=== PATIENT | female | born 1980 | race Caucasian/White ===

== ENCOUNTER 2020-04-06 13:08 | Emergency (ER) | payer OTHER ==
[~2020-04-06] VITALS: Ht 160 cm; Wt 92.1 kg
--- OUTSIDE RECORDS SUMMARY | ~2020-04-06 | XMS | Encounter Summary ---
Demographics + + + | Address | [address] | | | [place] [address] | + + + | Home Phone | | + + + | Preferred Language | Unknown | + + + | Marital Status | Single | + + + | Latter Day Affiliation | Unknown | + + + | Race | Unknown | + + + | Ethnic Group | Unknown | + + + Author + + + | Author | [facility] | | | and [place] | + + + | Organization | [facility] | | | and [place] | + + + | Address | Unknown | + + + | Phone | Unavailable | + + + Support + + +---------+ + | Name | Relationship | Address | Phone | + + +---------+ + | Nikki Levin | ECON | Unknown | | + + +---------+ + Care Team Providers + +------+ + | Care Director Ambulatory Name | Role | Phone | + +------+ + | Amrit Roblero | PCP | | + +------+ + Reason for Referral Diagnostic/Screening (Routine) + +--------+ + + + + | Status | Reason | Specialty | Diagnoses / | Referred By | Referred To | | | | | Procedures | Contact | Contact | + +--------+ + + + + | Authorized | | | Diagnoses | [facility] | | | | | Bicuspid | [facility] | | | | | aortic valve | [address] | | | | | Procedures | [address] | [address] | | | | | ECHO | [address] | [place] | | | | | Complete | [place], [place] | [address] | | | | | | [address] | Phone: | | | | | | Phone: | [phone] | | | | | | [phone] | Fax: | | | | | | Fax: | [phone] | | | | | | [phone] | | + +--------+ + + + + Reason for Visit + + + | Reason | Comments | + + + | Follow-up | | + + + Evaluate & Treat (Routine) + +--------+ + + + + | Status | Reason | Specialty | Diagnoses / | Referred By | Referred To | | | | | Procedures | Contact | Contact | + +--------+ + + + + | Authorized | | | Diagnoses | [place], | [place], | | | | | 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 | [place] | [place] | | | | | valve | [address] | [place] | | | | | Endocarditis | [place], | [address] Phone: | | | | | valve | [place] [address] | [phone] | | | | | unspecified | Phone: | Fax: | | | | | Chest pain | [phone] | [phone] | | | | | unspecified | Fax: | | | | | | Stress | [phone] | | | | | | Test done- 3 | | | | | | | month Fu | | | | | | | Procedures | | | | | | | MO OFFICE | | | | | | | OUTPATIENT | | | | | | | VISIT 25 | | | | | | | MINUTES CRD | | | | | | | FOLLOW UP | | | + +--------+ + + + + Encounter Details +--------+---------+ + + + | Date | Type | Department | Care Team | Description | +--------+---------+ + + + | 02/05/ | Office | [facility] | Kiran Craft, | Bicuspid aortic | | 2019 | Visit | CARDIOLOGY [facility] | MD Francine HURD | valve (Primary Dx) | | | | [address] | [place], [place] | | | | | [address] | [address] | | | | | [place] | | | | | | [address] | | | | | | [phone] | | | +--------+---------+ + + + Social History + +-------+ +--------+------+ | Tobacco Use | Types | Packs/Day | Years | Date | | | | | Used | | + +-------+ +--------+------+ | Former Smoker | | | | | + +-------+ +--------+------+ + +---+---+---+ | Smokeless Tobacco: | | | | | Never Used | | | | + +---+---+---+ + + +---------+ + | Alcohol Use | Drinks/Week | oz/Week | Comments | + + +---------+ + | Not Currently | | | | + + +---------+ + + + + | Sex Assigned at | Date Recorded | | | | + + + | Not on file | | + + + + + + + | Job Start Date | Occupation | Industry | + + + + | Not on file | Not on file | Not on file | + + + + + + + + | Travel History | Travel Start | Travel End | + + + + + + | No recent travel history available. | + + documented as of this encounter Last Filed Vital Signs + + + + + | Vital Sign | Reading | Time Taken | Comments | + + + + + | Blood Pressure | 98/76 | 02/06/2020 2:03 PM | | | | | PDT | | + + + + + | Pulse | 82 | 02/06/2020 2:03 PM | | | | | PDT | | + + + + + | Temperature | - | - | | + + + + + | Respiratory Rate | - | - | | + + + + + | Oxygen Saturation | 97% | 02/06/2020 2:03 PM | | | | | PDT | | + + + + + | Inhaled Oxygen | - | - | | | Concentration | | | | + + + + + | Weight | 94.3 kg (208 lb) | 02/06/2020 2:03 PM | | | | | PDT | | + + + + + | Height | 160 cm (5' 3") | 02/06/2020 2:03 PM | | | | | PDT | | + + + + + | Body Mass Index | 36.85 | 02/06/2020 2:03 PM | | | | | PDT | | + + + + + documented in this encounter Progress Notes Kiran Craft MD - 02/06/2020 2:00 PM PDTFormatting of this note might be different f rom the original. Date of visit: 02/06/2020 Primary Care Physician: RJ Andrade CHIEF COMPLAINT: Chief Complaint Patient presents with Follow-up HISTORY OF PRESENT ILLNESS: Pam is 39 y.o. here for follow up visit. Follows up regarding bicuspid aortic valve with moderate stenosis. Since prior evaluation continues to be active without any chest pain or cardiac limitations . No change in medications. 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 Initially was evaluated for cardiac murmur and atypical chest pain. Echocardiogram showed moderate stenosis bicuspid aortic valve. Past medical history, SH, FH, and medications were reviewed in the chart. Medications: Outpatient Encounter Medications as of 02/06/2020 Medication Sig Dispense Refill hydrOXYzine hydrochloride (ATARAX) 25 mg tablet Take 25 mg by mouth every 6 (six) hours as needed for Itching. [DISCONTINUED] minocycline (MINOCIN,DYNACIN) 50 MG capsule Take 50 mg by mouth every 12 (twelve) hours. omeprazole (PRILOSEC) 20 mg capsule Take 20 mg by mouth Daily. No facility-administered encounter medications on file as of 02/06/2020. Allergies Allergies Allergen Reactions Amoxicillin Hives Penicillins Rash Rash REVIEW OF SYSTEMS: Constitutional: negative for fatigue. No fever, chills, and rigors. No report of weight ch zakiya. HEENT: Negative for nosebleeds, ear discharge, nasal congestion or soar throat. Eyes: Negative for visual disturbance, redness, or secretion. Respiratory: Negative for cough, sputum production, hemoptysis, wheezing. Cardiovascular: as HPI. Gastrointestinal: Negative for nausea, vomiting, diarrhea, abdominal pain and blood in stoo l. Genitourinary: Negative for dysuria or hematuria. Musculoskeletal: Negative for myalgias, back pain or arthralgia. Skin: Negative for rash. Neurological: Negative for dizziness. No numbness. No recent falls. No slurred speech. Hematological: No significant bruising. Psychiatric/Behavioral: No depression or anxiety. PHYSICAL EXAM Vital Signs: BP 98/76 | Pulse 82 | Ht 1.6 m (5' 3") | Wt 94.3 kg (208 lb) | SpO2 97% | BMI 36.85 kg /m GENERAL APPEARANCE: Alert, oriented, cooperative, no distress, appears stated age. HEENT: Extraocular movements were intact. No jaundice. Pupiles round and reactive. NECK: No JVD, lymphadenopathy. Carotid upstrokes normal. No carotid bruit heard. CARDIAC: Regular rhythm and rate. Systolic murmur in the right upper sternal border. CHEST: Normal bilateral symmetrical chest excursion.ackles or wheezing. No evidence of dull ness. ABDOMEN: Soft.No tenderness or guarding. No palpable organs. Active bowel sounds. EXTREMITIES: No lower extremities edema, cyanosis or clubbing. NEURO: Alert and oriented times three with no focal deficit. Cranial nerves are grossly no rmal. SKIN: Warm and dry. No rash. Psych: Normal affect and mood. DATA 12/25/2019 WBC 8.9, hemoglobin 13.6, platelets 319, sodium 140, potassium 4.0, chloride 103, bicarb 26 , BUN 9, creatinine 0.75. AST 20, ALT 25, alk phos 71, total cholesterol 160, triglycerides 219, HDL 41, LDL 75. No results found for: NA, K, CO2, BUN, CREA, CALCIUM, MG No results found for: WBC, HGB, HCT, MCV, LABPLAT No results found for: ALT, CHOL, TRIG, HDL, LDLEX, GLUF, TSH EC02/04/2020 Ordered and reviewed by myself showed normal sinus rhythm, normal EKG. Last Echo: 01/18/2019 Normal LV size and function, EF 65-70%. Normal RV size and function. Moderate aortic valve calcification, bicuspid, moderate to severe stenosis mean gradient 36 mmHg. The ascending aorta is dilated measuring up to 41 mm. Last Stress test:02/05/2019 David protocol 9.21 minutes. Asymptomatic. Maximal with average functional status no ischemic EKG changes. No risk underscore. Last Cath: Last US carotid: ASSESSMENT: Patient is 39 y.o. 1. Bicuspid aortic valve. Moderate stenosis mean gradient of 36 mmHg. 2. Dilated aortic root. 3. Obesity. 4. Anxiety. Plan: Denies any symptoms. Reviewed with the patient's symptoms of stenotic aortic valve. Patient advised to continue exercise program and walking. We will continue to monitor her symptomology. Repeat echocardiogram before next appointment. Will call with any change in symptoms. *This report has been prepared using a voice recognition system. The report was reviewed fo r accuracy, however, sound-alike word errors, addition and/or deletions may occur. If there is any question about this report please contact me. Kiran Craft MD, MPH documented in this encounter Plan of Treatment +--------+---------+ + + + | Date | Type | Specialty | Care Team | Description | +--------+---------+ + + + | 09/03/ | Office | Cardiology | Kiran Craft, | | 2019 | Visit | | MD Francine HURD | | | | | | [place], [place] | | | | | | [address] | | | | | | | | +--------+---------+ + + + + + +--------+ + + | Name | Type | Priori | Associated Diagnoses | Order Schedule | | | | ty | | | + + +--------+ + + | ECHO Complete | Echocardiog | Routin | Bicuspid aortic | Expected: | | | bill | e | valve | 02/06/2020, Expires: | | | | | | 02/05/2021 | + + +--------+ + + documented as of this encounter Procedures + +--------+ + + + | Procedure Name | Priori | Date/Time | Associated Diagnosis | Comments | | | ty | | | | + +--------+ + + + | ECG 12 LEAD | Routin | 02/06/2020 | Bicuspid aortic | Results for this | | | e | 2:09 PM | valve | procedure are in the | | | | PDT | | results section. | + +--------+ + + + documented in this encounter Results ECG 12 lead (02/06/2020 2:09 PM PDT) + + + + + + | Component | Value | Ref Range | Performed | Pathologist | | | | | At | Signature | + + + + + + | VENTRICULAR | 82 | BPM | [facility] | | | RATE EKG | | | | | + + + + + + | ATRIAL RATE | 82 | BPM | [facility] | | + + + + + + | P-R | 142 | ms | [facility] | | | INTERVAL | | | | | + + + + + + | QRS | 82 | ms | [facility] | | | DURATION | | | | | + + + + + + | Q-T | 384 | ms | [facility] | | | INTERVAL | | | | | + + + + + + | Q-T | 448 | ms | [facility] | | | INTERVAL | | | | | | (CORRECTED) | | | | | + + + + + + | P WAVE AXIS | 40 | degrees | [facility] | | + + + + + + | QRS AXIS | 7 | degrees | [facility] | | + + + + + + | T AXIS | 50 | degrees | [facility] | | + + + + + + | INTERPRETAT | Normal sinus | | [facility] | | | ION TEXT | rhythmNormal ECGNo | | | | | | previous ECGs | | | | | | availableConfirmed by | | | | | | Kiran Craft MD | | | | | | [id number]) on 02/09/2020 | | | | | | 11:03:41 AM | | | | + + + + + + + + | Specimen | + + | | + + + + + | Narrative | Performed At | + + + | | | + + + + +---------+ + + | Performing | Address | City/State/Zipcode | Phone Number | | Organization | | | | + +---------+ + + | [facility] | | | | + +---------+ + + documented in this encounter Visit Diagnoses + + | Diagnosis | + + | Bicuspid aortic valve - Primary Congenital insufficiency of aortic valve | + + documented in this encounter
--- OUTSIDE RECORDS SUMMARY | ~2020-04-06 | XMS | Encounter Summary ---
Demographics + + + | Address | [address] | | | [place] [address] | + + + | Home Phone | | + + + | Preferred Language | Unknown | + + + | Marital Status | Single | + + + | Spiritism Affiliation | Unknown | + + + | Race | Unknown | + + + | Ethnic Group | Unknown | + + + Author + + + | Author | [facility] | | | and [place] | + + + | Organization | [facility] | | | and [...] Team Providers + +------+ + | Care Sewer Pipe Cleaner Name | Role | Phone | + +------+ + PCP | Unavailable | + +------+ + Encounter Details +--------+ + + + + | Date | Type | Department | Care Team | Description | +--------+ + + + + | 12/21/ | Hospital | [facility] | | | | 1999 | Encounter | [facility] | | | | | | [facility] [address] | | | | | | [place], | | | | | | [place] [address] | | | | | | [phone] | | | +--------+ + + + + Social History + +-------+ +--------+------+ | Tobacco Use | Types | Packs/Day | Years | Date | | | | | Used | | + +-------+ +--------+------+ | Never Assessed | | | | | + +-------+ +--------+------+ + + + | Sex Assigned at [...] + + documented as of this encounter Plan of Treatment +--------+---------+ + + + | Date | Type | Specialty | Care Team | Description | +--------+---------+ + + + | 09/03/ | Office | Cardiology | Kiran Ashby, | | | 2019 | Visit | | MD Francine HURD | | | | | | [place] | | | | | | [address] | | | | | | | | +--------+---------+ + + + documented as of this encounter Visit Diagnoses Not on filedocumented in this encounter"
--- OUTSIDE RECORDS SUMMARY | ~2020-04-06 | XMS | Encounter Summary ---
Demographics + + + | Address | [address] | | | [place] [address] | + + + | Home Phone | | + + + | Preferred Language | Unknown | + + + | Marital Status | Single | + + + | Mu-Ism Affiliation | Unknown | + + + | Race | Unknown | + + + | Ethnic Group | Unknown | + + + Author + + + | Author | [facility] | | | and [place] | + + + | Organization | [facility] | | | and [...] Team Providers + +------+ + | Care Senior Principal Name | Role | Phone | + +------+ + | Amrit Roblero | PCP | | + +------+ + Encounter Details +--------+ + + + + | Date | Type | Department | Care Team | Description | +--------+ + + + + | 01/18/ | Orders Only | [facility] | Kiran Ashby, | | | 2019 | | CONVERSION [address] | [address] | | | | | [address] | [place] | | | | | [place], [place] | [address] | | | | | [address] | | | | | | [phone] | | | +--------+ + + + [...] Cardiology | Kiran Ashby, | | | 2020 | Visit | | MD Francine [address] | | | | | | [place] | | | | | | [address] | | | | | | | | +--------+---------+ + + + documented as of this encounter Procedures + +--------+ + + + | Procedure Name | Priori | Date/Time | Associated Diagnosis | Comments | | | ty | | | | + +--------+ + + + | ECHO INTERPRETATION | Routin | 01/18/2019 | | Results for this | | OF OUTSIDE FILMS | e | 3:26 PM | | procedure are in the | | | | PDT | | results section. | + +--------+ + + + documented in this encounter Results ECHO Interpretation of Outside Films (01/18/2019 3:26 PM PDT) + + | Specimen | + + | | + + + + + | Impressions | Performed At | + + + | 1. The left ventricle is normal in size, wall thickness and systolic | | | function EF 60-70%. 2. The right ventricle is normal in size and | | | function. 3. The aortic valve is moderately calcified, possible | | | bicuspid, moderate to severe stenosis mean gradient of 36 mmHg. 4. | | | There is no pericardial effusion. 5. The ascending aorta is dilated | | | measuring up to 41 mm. | | + + + + + + | Narrative | Performed At | + + + | Patient Name: Pam Villegas Date of : 1980 | | | Performing Physician: Kiran Ashby | | | | | | INDICATIONS PRECORDIAL CHEST PAIN, VALVULAR DISEASE | | | CONCLUSIONS 1. The left ventricle is normal in size, | | | wall thickness and systolic function EF 60-70%. 2. The right | | | ventricle is normal in size and function. 3. The aortic valve is | | | moderately calcified, possible bicuspid, moderate to severe stenosis | | | mean gradient of 36 mmHg. 4. There is no pericardial effusion. 5. | | | The ascending aorta is dilated measuring up to 41 mm. FINDINGS | | | -------- ECG rhythm: Sinus rhythm. Study: A 2-dimensional | | | transthoracic echocardiogram with m-mode, spectral and color flow | | | Doppler was perfomed. Study: This was a technically adequate study. | | | Left Ventricle: Overall left ventricular systolic function is normal | | | with, an EF between 65 - 70 %. Left Ventricle: The left ventricle | | | cavity size is normal. Left Ventricle: Left ventricular wall | | | thickness is normal. Left Ventricle: The diastolic filling pattern is | | | normal for the age of the patient. Right Ventricle: The right | | | ventricle is normal in size and function. Left Atrium: The left | | | atrium is normal in size. Right Atrium: The right atrium is normal in | | | size. Aortic Valve: The aortic valve is bicuspid. Aortic Valve: The | | | aortic valve is moderately calcified. Aortic Valve: There is mild | | | aortic regurgitation. Aortic Valve: Moderate to severe aortic | | | stenosis with peak/mean pressure gradient of 54.33mmHg / 36.24mmHg, | | | the aortic valve area by continuity equation is 0.8cm . Aortic | | | Valve: Aortic valve is moderately thickened. Aortic Valve: The aortic | | | pressure half-time by doppler is 455ms. Mitral Valve: Normal | | | appearing mitral valve. Mitral Valve: Mild mitral regurgitation is | | | present. Tricuspid Valve: The tricuspid valve appears structurally | | | normal. Tricuspid Valve: Mild tricuspid regurgitation present. | | | Tricuspid Valve: There is no evidence of pulmonary hypertension. | | | Tricuspid Valve: The right ventricular systolic pressure (pulmonary | | | artery systolic pressure), as measured by Doppler, is 34.77mmHg. | | | Pulmonic Valve: The pulmonic valve was not well visualized. Pulmonic | | | Valve: Trace pulmonic regurgitation. Pericardium: There is no | | | pericardial effusion. Pericardium: No pleural effusion seen. | | | IVC/Hepatic Veins: The inferior vena cava is normal in size and | | | collapses > 50 % with sniff, indicating normal central venous | | | pressures. Aorta: The ascending aorta is dilated measuring up to 41 | | | mm. MEASUREMENTS Ao asc: 4.09 cm Ao sinus: | | | 3.[address] junct: 3.22 cm IVC: 1.16 cm EDV(Teich): | | | 63.77 ml IVSd: 1.11 cm LVIDd: 3.84 cm LVPWd: 0.89 cm LVOT | | | Area: 3.19 cm2 LVOT Diam: 2.01 cm %FS: 31.18 % EF(Teich): | | | 59.67 % ESV(Teich): 25.71 ml LVIDs: 2.64 cm SV(Teich): | | | 38.05 ml RV Major: 6.06 cm RV Minor: 3.04 cm LVEF MOD A2C: | | | 63.61 % SV MOD A2C: 53.10 ml LVEF MOD A4C: 71.27 % SV MOD | | | A4C: 73.79 ml EF Biplane: 68.48 % LVEDV MOD BP: 97.32 ml | | | LVESV MOD BP: 30.67 ml LVEDV MOD A2C: 83.48 ml LVLd A2C: | | | 7.72 cm LVEDV MOD A4C: 103.53 ml LVLd A4C: 8.55 cm LVESV MOD | | | A2C: 30.37 ml LVLs A2C: 6.32 cm LVESV MOD A4C: 29.73 ml | | | LVLs A4C: 6.04 cm LAESV(A-L): 33.93 ml LAESV Index (A-L): | | | 18.14 ml/m2 LAAs A2C: 12.41 cm2 LAESV A-L A2C: 31.82 ml LALs | | | A2C: 4.10 cm LAAs A4C: 12.75 cm2 LAESV A-L A4C: 34.85 ml | | | LALs A4C: 3.95 cm RAAs: 13.51 cm2 RAESV A-L: 37.90 ml | | | RAESV MOD: 36.62 ml RALs: 4.09 cm TAPSE: 2.51 cm AR Dec | | | Eagle: 2.80 m/s2 AR Dec Time: 1569.12 ms AR maxP.36 | | | mmHg AR PHT: 455.04 ms AR Vmax: 4.39 m/s HR: 84.03 BPM AV | | | maxP.32 mmHg AV meanP.23 mmHg AV Vmax: 3.66 m/s | | | AV Vmean: 2.82 m/s AV VTI: 89.58 cm KIESHA Vmax: 0.89 cm2 | | | KIESHA (VTI): 0.80 cm2 AVAI Vmax: 0.00 cm2/m2 AVAI (VTI): 0.00 | | | cm2/m2 LVOT maxP.25 mmHg LVOT meanP.40 mmHg LVSI | | | Dopp: 38.44 ml/m2 LVSV Dopp: 71.89 ml LVOT Vmax: 1.03 m/s | | | LVOT Vmean: 0.74 m/s LVOT VTI: 22.53 cm MV A Zeus: 0.86 m/s | | | MV Dec Eagle: 4.44 m/s2 MV DecT: 214.68 ms MV E Zeus: 0.95 | | | m/s MV E/A Ratio: 1.10 MV PHT: 62.25 ms MVA By PHT: 3.53 | | | cm2 Septal e': 0.10 m/s Septal E/e': 9.24 Lateral e': 0.12 | | | m/s Lateral E/e': 7.80 RAP: 5 mmHg RVSP: 34.76 mmHg TR | | | maxP.76 mmHg TR Vmax: 2.72 m/s Collections Attorney: DBS | | | Authenticated by: Kiran [place] Report Date/Time: 01-18-2019 | | | 20:24:59 | | + + + + + | Procedure Note | + + | Donald Thomas Conversion - 06/21/2019 2:13 PM PDT Patient Name: Maxine Villegas | | of : 1980 Performing Physician: Kiran | | [facility] INDICATIONS------ | | -----PRECORDIAL CHEST PAIN, VALVULAR DISEASE CONCLUSIONS 1. The left ventricle | | is normal in size, wall thickness and systolic function EF 60-70%.2. The right | | ventricle is normal in size and function.3. The aortic valve is moderately calcified, | | possible bicuspid, moderate to severe stenosis mean gradient of 36 mmHg.4. There is no | | pericardial effusion.5. The ascending aorta is dilated measuring up to 41 mm. | | FINDINGS--------ECG rhythm: Sinus rhythm.Study: A 2-dimensional transthoracic | | echocardiogram with m-mode, spectral and color flow Doppler was perfomed.Study: This was | | a technically adequate study.Left Ventricle: Overall left ventricular systolic function | | is normal with, an EF between 65 - 70 %.Left Ventricle: The left ventricle cavity size | | is normal.Left Ventricle: Left ventricular wall thickness is normal.Left Ventricle: The | | diastolic filling pattern is normal for the age of the patient.Right Ventricle: The | | right ventricle is normal in size and function.Left Atrium: The left atrium is normal in | | size.Right Atrium: The right atrium is normal in size.Aortic Valve: The aortic valve is | | bicuspid.Aortic Valve: The aortic valve is moderately calcified.Aortic Valve: There is | | mild aortic regurgitation.Aortic Valve: Moderate to severe aortic stenosis with | | peak/mean pressure gradient of 54.33mmHg / 36.24mmHg, the aortic valve area by | | continuity equation is 0.8cm .Aortic Valve: Aortic valve is moderately | | thickened.Aortic Valve: The aortic pressure half-time by doppler is 455ms.Mitral Valve: | | Normal appearing mitral valve.Mitral Valve: Mild mitral regurgitation is | | present.Tricuspid Valve: The tricuspid valve appears structurally normal.Tricuspid | | Valve: Mild tricuspid regurgitation present.Tricuspid Valve: There is no evidence of | | pulmonary hypertension.Tricuspid Valve: The right ventricular systolic pressure | | (pulmonary artery systolic pressure), as measured by Doppler, is 34.77mmHg.Pulmonic | | Valve: The pulmonic valve was not well visualized.Pulmonic Valve: Trace pulmonic | | regurgitation.Pericardium: There is no pericardial effusion.Pericardium: No pleural | | effusion seen.IVC/Hepatic Veins: The inferior vena cava is normal in size and collapses | | > 50 % with sniff, indicating normal central venous pressures.Aorta: The ascending aorta | | is dilated measuring up to 41 mm. MEASUREMENTS Ao asc: 4.09 cmAo sinus: | | 3.[address] junct: 3.22 cmIVC: 1.16 cmEDV(Teich): 63.77 mlIVSd: 1.11 cmLVIDd: | | 3.84 cmLVPWd: 0.89 cmLVOT Area: 3.19 [id number] Diam: 2.01 cm%FS: 31.18 | | %EF(Teich): 59.67 %ESV(Teich): 25.71 mlLVIDs: 2.64 cmSV(Teich): 38.05 mlRV | | Major: 6.06 cmRV Minor: 3.04 cmLVEF MOD A2C: 63.61 %SV MOD A2C: 53.10 mlLVEF MOD | | A4C: 71.27 %SV MOD A4C: 73.79 mlEF Biplane: 68.48 %LVEDV MOD BP: 97.32 mlLVESV | | MOD BP: 30.67 mlLVEDV MOD A2C: 83.48 mlLVLd A2C: 7.72 cmLVEDV MOD A4C: 103.53 | | mlLVLd A4C: 8.55 cmLVESV MOD A2C: 30.37 mlLVLs A2C: 6.32 cmLVESV MOD A4C: 29.73 | | mlLVLs A4C: 6.04 cmLAESV(A-L): 33.93 mlLAESV Index (A-L): 18.14 ml/m2LAAs A2C: | | 12.41 [id number] A-L A2C: 31.82 mlLALs A2C: 4.10 cmLAAs A4C: 12.75 [id number] A-L A4C: | | 34.85 mlLALs A4C: 3.95 cmRAAs: 13.51 [id number] A-L: 37.90 mlRAESV MOD: 36.62 | | mlRALs: 4.09 cmTAPSE: 2.51 cmAR Dec Eagle: 2.80 m/s2AR Dec Time: 1569.12 msAR | | maxP.36 mmHgAR PHT: 455.04 msAR Vmax: 4.39 m/sHR: 84.03 BPMAV maxPG: | | 54.32 mmHgAV meanP.23 mmHgAV Vmax: 3.66 m/Nasir Vmean: 2.82 m/Nasir VTI: 89.58 | | cmAVA Vmax: 0.89 cm2AVA (VTI): 0.80 [id number] Vmax: 0.00 cm2/m2AVAI (VTI): 0.00 | | cm2/m2LVOT maxP.25 mmHgLVOT meanP.40 mmHgLVSI Dopp: 38.44 ml/m2LVSV Dopp: | | 71.89 mlLVOT Vmax: 1.03 m/sLVOT Vmean: 0.74 m/sLVOT VTI: 22.53 cmMV A Zeus: | | 0.86 m/sMV Dec [place]: 4.44 m/s2MV DecT: 214.68 msMV E Zeus: 0.95 m/sMV E/A Ratio: | | 1.10MV PHT: 62.25 msMVA By PHT: 3.53 [id number] e': 0.10 m/sSeptal E/e': | | 9.24Lateral e': 0.12 m/sLateral E/e': 7.80RAP: 5 mmHgRVSP: 34.76 mmHgTR maxPG: | | 29.76 mmHgTR Vmax: 2.72 m/s Collections Attorney: DBSAuthenticated by: Kiran Layne | | Date/Time: 3-21-2019 20:24:59 IMPRESSION: 1. The left ventricle is normal in size, wall | | thickness and systolic function EF 60-70%.2. The right ventricle is normal in size and | | function.3. The aortic valve is moderately calcified, possible bicuspid, moderate to | | severe stenosis mean gradient of 36 mmHg.4. There is no pericardial effusion.5. The | | ascending aorta is dilated measuring up to 41 mm. | |IVC: 1.16 cm | |EDV(Teich): 63.77 ml | |IVSd: 1.11 cm | |LVIDd: 3.84 cm | |LVPWd: 0.89 cm | |LVOT Area: 3.19 cm2 | |LVOT Diam: 2.01 cm | |%FS: 31.18 % | |EF(Teich): 59.67 % | |ESV(Teich): 25.71 ml | |LVIDs: 2.64 cm | |SV(Teich): 38.05 ml | |RV Major: 6.06 cm | |RV Minor: 3.04 cm | |LVEF MOD A2C: 63.61 % | |SV MOD A2C: 53.10 ml | |LVEF MOD A4C: 71.27 % | |SV MOD A4C: 73.79 ml | |EF Biplane: 68.48 % | |LVEDV MOD BP: 97.32 ml | |LVESV MOD BP: 30.67 ml | |LVEDV MOD A2C: 83.48 ml | |LVLd A2C: 7.72 cm | |LVEDV MOD A4C: 103.53 ml | |LVLd A4C: 8.55 cm | |LVESV MOD A2C: 30.37 ml | |LVLs A2C: 6.32 cm | |LVESV MOD A4C: 29.73 ml | |LVLs A4C: 6.04 cm | |LAESV(A-L): 33.93 ml | |LAESV Index (A-L): 18.14 ml/m2 | |LAAs A2C: 12.41 cm2 | |LAESV A-L A2C: 31.82 ml | |LALs A2C: 4.10 cm | |LAAs A4C: 12.75 cm2 | |LAESV A-L A4C: 34.85 ml | |LALs A4C: 3.95 cm | |RAAs: 13.51 cm2 | |RAESV A-L: 37.90 ml | |RAESV MOD: 36.62 ml | |RALs: 4.09 cm | |TAPSE: 2.51 cm | |AR Dec [place]: 2.80 m/s2 | |AR Dec Time: 1569.12 ms | |AR maxP.36 mmHg | |AR PHT: 455.04 ms | |AR Vmax: 4.39 m/s | |HR: 84.03 BPM | |AV maxP.32 mmHg | |AV meanP.23 mmHg | |AV Vmax: 3.66 m/s | |AV Vmean: 2.82 m/s | |AV VTI: 89.58 cm | |KIESHA Vmax: 0.89 cm2 | |KIESHA (VTI): 0.80 cm2 | |AVAI Vmax: 0.00 cm2/m2 | |AVAI (VTI): 0.00 cm2/m2 | |LVOT maxP.25 mmHg | |LVOT meanP.40 mmHg | |LVSI Dopp: 38.44 ml/m2 | |LVSV Dopp: 71.89 ml | |LVOT Vmax: 1.03 m/s | |LVOT Vmean: 0.74 m/s | |LVOT VTI: 22.53 cm | |MV A Zeus: 0.86 m/s | |MV Dec Eagle: 4.44 m/s2 | |MV DecT: 214.68 ms | |MV E Zeus: 0.95 m/s | |MV E/A Ratio: 1.10 | |MV PHT: 62.25 ms | |MVA By PHT: 3.53 cm2 | |Septal e': 0.10 m/s | |Septal E/e': 9.24 | |Lateral e': 0.12 m/s | |Lateral E/e': 7.80 | |RAP: 5 mmHg | |RVSP: 34.76 mmHg | |TR maxP.76 mmHg | |TR Vmax: 2.72 m/s | | | |Collections Attorney: DBS | |Authenticated by: Kiran Ashby | |Report Date/Time: 01-18-2019 20:24:59 | | | |IMPRESSION: | |1. The left ventricle is normal in size, wall thickness and systolic function EF 60-70%. | |2. The right ventricle is normal in size and function. | |3. The aortic valve is moderately calcified, possible bicuspid, moderate to severe stenosis mean gradient of 36 mmHg. | |4. There is no pericardial effusion. | |5. The ascending aorta is dilated measuring up to 41 mm. | + + documented in this encounter Visit Diagnoses Not on filedocumented in this encounter"
--- OUTSIDE RECORDS SUMMARY | ~2020-04-06 | XMS | Encounter Summary ---
Demographics + + + | Address | [address] | | | [place] [address] | + + + | Home Phone | | + + + | Preferred Language | Unknown | + + + | Marital Status | Single | + + + | Taoism Affiliation | Unknown | + + + | Race | Unknown | + + + | Ethnic Group | Unknown | + + + Author + + + | Author | [facility] | | | and [place] | + + + | Organization | [facility] | | [...] Team Providers + +------+ + | Care Industrial Twisting Machine Operator Name | Role | Phone | + +------+ + PCP | Unavailable | + +------+ + Encounter Details +--------+ + + + + | Date | Type | Department | Care Team | Description | +--------+ + + + + | 07/31/ | Hospital | [facility] | | | | 2000 | Encounter | [facility] | | | | | | [address] | | | | | | [place] | | | | | | [address] | | | | | | [phone] | | | +--------+ + + + [...] [place] | | | | | | [address] | | | | | | | | +--------+---------+ + + + documented as of this encounter Visit Diagnoses Not on filedocumented in this encounter"
--- OUTSIDE RECORDS SUMMARY | ~2020-04-06 | XMS | Encounter Summary ---
Demographics + + + | Address | [address] | | | [place] [address] | + + + | Home Phone | | + + + | Preferred Language | Unknown | + + + | Marital Status | Single | + + + | Jewish Affiliation | Unknown | + + + | Race | Unknown | + + + | Ethnic Group | Unknown | + + + Author + + + | Author | [facility] | | | and [place] | + + + | Organization | [facility] | | | and [...] Team Providers + +------+ + | Care Insurance Claim Approver Name | Role | Phone | + +------+ + PCP | Unavailable | + +------+ + Encounter Details +--------+ + + + + | Date | Type | Department | Care Team | Description | +--------+ + + + + | 07/31/ | Hospital | [facility] | | | | 2000 | Encounter | [facility] | | | | | | [address] | | | | | | [place] | | | | | | [address] | | | | | | [phone] | | | +--------+ + + + [...] [place] | | | | | | [address] | | | | | | | | +--------+---------+ + + + documented as of this encounter Visit Diagnoses Not on filedocumented in this encounter"
--- OUTSIDE RECORDS SUMMARY | ~2020-04-06 | XMS | Encounter Summary ---
Demographics + + + | Address | [address] | | | [place] [address] | + + + | Home Phone | | + + + | Preferred Language | Unknown | + + + | Marital Status | Single | + + + | Episcopalian Affiliation | Unknown | + + + | Race | Unknown | + + + | Ethnic Group | Unknown | + + + Author + + + | Author | [facility] | | | and [place] | + + + | Organization | [facility] | | | and [...] Team Providers + +------+ + | Care Undercollar Baster Name | Role | Phone | + +------+ + PCP | Unavailable | + +------+ + Encounter Details +--------+ + + + + | Date | Type | Department | Care Team | Description | +--------+ + + + + | 04/16/ | Hospital | [facility] | | | | 2001 | Encounter | [facility] | | | | | | [address] | | | | | | [place] | | | | | | [address] | | | | | | [phone] | | | +--------+ + + + [...] [place] | | | | | | [address] | | | | | | | | +--------+---------+ + + + documented as of this encounter Visit Diagnoses Not on filedocumented in this encounter"
--- OUTSIDE RECORDS SUMMARY | ~2020-04-06 | XMS | Encounter Summary ---
Demographics + + + | Address | [address] | | | [place] [address] | + + + | Home Phone | | + + + | Preferred Language | Unknown | + + + | Marital Status | Single | + + + | Voodoo Affiliation | Unknown | + + + | Race | Unknown | + + + | Ethnic Group | Unknown | + + + Author + + + | Author | [facility] | | | and [place] | + + + | Organization | [facility] | | | [...] Team Providers + +------+ + | Care Copy Operator Name | Role | Phone | + +------+ + PCP | Unavailable | + +------+ + Encounter Details +--------+ + + + + | Date | Type | Department | Care Team | Description | +--------+ + + + + | 12/22/ | Hospital | [facility] | | | | 1999 - | Encounter | [facility] | | | | | | [facility] [address] | | | | 12/23/ | | [place], | | | | 1999 | | [place] [address] | | | | | | [phone] | | | +--------+ + + + [...] [place] | | | | | | [address] | | | | | | | | +--------+---------+ + + + documented as of this encounter Visit Diagnoses Not on filedocumented in this encounter"
--- OUTSIDE RECORDS SUMMARY | ~2020-04-06 | XMS | Encounter Summary ---
Demographics + + + | Address | [address] | | | [place] [address] | + + + | Home Phone | | + + + | Preferred Language | Unknown | + + + | Marital Status | Single | + + + | Anabaptist Affiliation | Unknown | + + + | Race | Unknown | + + + | Ethnic Group | Unknown | + + + Author + + + | Author | [facility] | | | and [place] | + + + | Organization | [facility] | [...] Team Providers + +------+ + | Care Educational Psychology Professor Name | Role | Phone | + [...] [place] | | | | | [place], [place] | [address] | | | | | [address] | | | | | | [phone] | | | +--------+ + + + [...] [place] | | | | | | [address] | | | | | | | [...] 2.51 cm AR Dec | | | [place]: 2.80 m/s2 AR Dec Time: 1569.12 ms [...] 0.86 m/s | | | MV Dec [place]: 4.44 m/s2 MV DecT: 214.68 ms MV E Zeus: 0.95 | | | m/s MV E/A Ratio: 1.10 MV PHT: 62.25 ms MVA By PHT: 3.53 | | | cm2 Septal e': 0.10 m/s Septal E/e': 9.24 Lateral e': 0.12 | | | m/s Lateral E/e': 7.80 RAP: 5 mmHg RVSP: 34.76 mmHg TR | | | maxP.76 mmHg TR Vmax: 2.72 m/s Deputy United [place] Marshal: DBS | | | Authenticated by: Kiran [place] Report Date/Time: 01-18-2019 | | | 20:24:59 | | + + + + + | Procedure Note | + + | Donald Thomas Conversion - 06/21/2019 2:13 PM PDT Patient Name: Maxine Villegas | | of : 1980 Performing Physician: Kiran | | [facility] INDICATIONS------ | | -----PRECORDIAL CHEST PAIN, [...] | 3.84 cmLVPWd: 0.89 cmLVOT Area: 3.19 [id number] Diam: 2.01 cm%FS: 31.18 | | %EF(Teich): [...] (A-L): 18.14 ml/m2LAAs A2C: | | 12.41 [id number] A-L A2C: 31.82 mlLALs A2C: 4.10 cmLAAs A4C: 12.75 [id number] A-L A4C: | | 34.85 mlLALs A4C: 3.95 cmRAAs: 13.51 [id number] A-L: 37.90 mlRAESV MOD: 36.62 | | mlRALs: 4.09 cmTAPSE: 2.51 cmAR Dec [place]: 2.80 m/s2AR Dec Time: 1569.12 msAR | | maxP.36 mmHgAR PHT: 455.04 msAR Vmax: 4.39 m/sHR: 84.03 BPMAV maxPG: | | 54.32 mmHgAV meanP.23 mmHgAV Vmax: 3.66 m/Nasir Vmean: 2.82 m/Nasir VTI: 89.58 | | cmAVA Vmax: 0.89 cm2AVA (VTI): 0.80 hh2YPGT Vmax: 0.00 cm2/m2AVAI (VTI): 0.00 | | cm2/m2LVOT maxP.25 mmHgLVOT meanP.40 mmHgLVSI Dopp: 38.44 ml/m2LVSV Dopp: | | 71.89 mlLVOT Vmax: 1.03 m/sLVOT Vmean: 0.74 m/sLVOT VTI: 22.53 cmMV A Zeus: | | 0.86 m/sMV Dec [place]: 4.44 m/s2MV DecT: 214.68 msMV E Zeus: 0.95 m/sMV E/A Ratio: | | 1.10MV PHT: 62.25 msMVA By PHT: 3.53 [id number] e': 0.10 m/sSeptal E/e': | | 9.24Lateral e': 0.12 m/sLateral E/e': 7.80RAP: 5 mmHgRVSP: 34.76 mmHgTR maxPG: | | 29.76 mmHgTR Vmax: 2.72 m/s Deputy United States Marshal: DBSAuthenticated by: Kiran Layne | | Date/Time: [...] | |TAPSE: 2.51 cm | |AR Dec [place]: 2.80 m/s2 | |AR Dec Time: 1569.12 [...] A Zeus: 0.86 m/s | |MV Dec [place]: 4.44 m/s2 | |MV DecT: 214.68 ms [...] |TR Vmax: 2.72 m/s | | | |Deputy United [place] Marshal: DBS | |Authenticated by: Kiran Ashby | [...]
--- OUTSIDE RECORDS SUMMARY | ~2020-04-06 | XMS | Encounter Summary ---
Demographics + + + | Address | [address] | | | [place] [address] | + + + | Home Phone | | + + + | Preferred Language | Unknown | + + + | Marital Status | Single | + + + | Christianity Affiliation | Unknown | + + + | Race | Unknown | + + + | Ethnic Group | Unknown | + + + Author + + + | Author | [facility] | | | and [place] | + + + | Organization | [facility] | | | [...] Team Providers + +------+ + | Care Doughmaker Name | Role | Phone | + +------+ + PCP | Unavailable | + +------+ + Encounter Details +--------+ + + + + | Date | Type | Department | Care Team | Description | +--------+ + + + + | 10/10/ | Hospital | [facility] | | | | 1998 | Encounter | [facility] | | | | | | [facility] [address] | | | | | [address] [place], | | | | | | [place] [address] | | | | | | [phone] | | | +--------+ + + + [...] [place] | | | | | | [address] | | | | | | | | +--------+---------+ + + + documented as of this encounter Visit Diagnoses Not on filedocumented in this encounter"
--- OUTSIDE RECORDS SUMMARY | ~2020-04-06 | XMS | Encounter Summary ---
Demographics + + + | Address | [address] | | | [place] [address] | + + + | Home Phone | | + + + | Preferred Language | Unknown | + + + | Marital Status | Single | + + + | Judaism Affiliation | Unknown | + + + | Race | Unknown | + + + | Ethnic Group | Unknown | + + + Author + + + | Author | [facility] | | | and [place] | + + + | Organization | [facility] | | | [...] Team Providers + +------+ + | Care Licensing Director Name | Role | Phone | + +------+ + PCP | Unavailable | + +------+ + Encounter Details +--------+ + + + + | Date | Type | Department | Care Team | Description | +--------+ + + + + | 12/15/ | Hospital | [facility] | | | | 1999 | Encounter | [facility] | | | | | | [facility] [address] | | | | | | [place], | | | | | | [place] [address] | | | | | | [phone] | | | +--------+ + + + [...] [place] | | | | | | [id number] | | | | | | | | +--------+---------+ + + + documented as of this encounter Visit Diagnoses Not on filedocumented in this encounter"
--- OUTSIDE RECORDS SUMMARY | ~2020-04-06 | XMS | Clinical Summary ---
Demographics + + + | Address | [address] | | | [place] [address] | + + + | Home Phone | | + + + | Preferred Language | Unknown | + + + | Marital Status | Single | + + + | Gnosticist Affiliation | Unknown | + + + | Race | Unknown | + + + | Ethnic Group | Unknown | + + + Author + + + | Author | [facility] | | | and [place] | + + + | Organization | [facility] | | | and [place] | + + + | Address | Unknown | + + + | Phone | Unavailable | + + + Support + + +---------+ + | Name | Relationship | Address | Phone | + + +---------+ + | Nikki Ollie | ECON | Unknown | | + + +---------+ + Care Team Providers + +------+ + | Care Agent Producer Name | Role | Phone | + +------+ + | Amrit Roblero | PCP | | + +------+ + Allergies + + + + + + | Active Allergy | Reactions | Severity | Noted | Comments | | | | | Date | | + + + + + + | Amoxicillin | Hives | High | 12/18/19 | | | | | | 19 | | + + + + + + | Penicillins | Rash | Medium | 01/11/20 | Rash | | | | | 19 | | + + + + + + Medications + + + +---------+------+------+-------+ | Medication | Sig | Dispensed | Refills | Star | End | Statu | | | | | | t | Date | s | | | | | | Date | | | + + + +---------+------+------+-------+ | hydrOXYzine | Take 25 mg by mouth | | 0 | 03/1 | | Activ | | hydrochloride | every 6 (six) hours | | | 3/20 | | e | | (ATARAX) 25 mg | as needed for | | | 19 | | | | tablet | Itching. | | | | | | + + + +---------+------+------+-------+ | omeprazole | Take 20 mg by mouth | | 0 | 03/2 | | Activ | | (PRILOSEC) 20 mg | Daily. 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 | + + Encounters +--------+ + + + + | Date | Type | Specialty | Care Team | Description | +--------+ + + + + | 02/20/ | Virtual | Gastroenterology | [facility], | Abdominal pain, | | 2019 | Office | | SRI Johnston | right upper quadrant | | | Visit | | | (Primary Dx) | +--------+ + + + + | 02/05/ | Office | Cardiology | Kiran Craft, | Bicuspid aortic | | 2019 | Visit | | MD | valve (Primary Dx) | +--------+ + + + + from Last 3 Months Family History + + +------+ + | Medical History | Relation | Name | Comments | + + +------+ + | Hypertension | Mother | | | + + +------+ + + +------+--------+ + | Relation | Name | Status | Comments | + +------+--------+ + | Father | | Alive | | + +------+--------+ + | Mother | | Alive | | + +------+--------+ + | Mother | | | | + +------+--------+ + Social History + +-------+ +--------+------+ | [...] recent travel history available. | + + Last Filed Vital Signs + + + [...] + + + | Respiratory Rate | 18 | 01/10/2019 2:49 PM | | | | | PDT [...] | | + + + + + Plan of Treatment +--------+---------+ + + + | Date | Type | Specialty | Care Team | Description | +--------+---------+ + + + | 09/03/ | Office | Cardiology | Kiran Craft, | | | 2019 | Visit | | MD Francine HURD | | | | | | [place] | | | | | | [address] | | | | | | | | +--------+---------+ + + + + + + + + | Health Maintenance | Due Date | Last Done | Comments | + + + + + | Vaccine: | | | | | Dtap/Tdap/Td (1 - | 3 | | | | Tdap) | | | | + + + + + | Cervical Cancer | | | | | Screening (Pap) | 2 | | | + + + + + | Vaccine: Influenza | | | | | (Season Ended) | 0 | | | + + + + + Procedures + +--------+ + + + | [...] section. | + +--------+ + + + from Last 3 Months Results ECG 12 lead (02/06/2020 2:09 PM [...] MD | | | | | | 5068) on 02/09/2020 | | | | | [...] | | | + +---------+ + + from Last 3 Months Insurance + +--------+ +--------+ +---------+--------+ | Payer | Benefi | Subscriber | Effect | Phone | Address | Type | | | t Plan | ID | celia | | | | | | / | | Dates | | | | | | Group | | | | | | + +--------+ +--------+ +---------+--------+ | [employer] | [employer] | [id number] | 01/02/20 | [phone] | | Medica | | MEDICAID HMO | HEALTH | | 20-Pre | 1 | | id | | | MDCD | | sent | | | | | | [place]MO [place] | | | | | | + +--------+ +--------+ +---------+--------+ | [employer] | MOD[employer] | [id number] | | [phone] | | Medica | | MEDICAID HMO | HEALTH | | [phone]-Pr | 1 | | id | | | MDCD | | esent | | | | | | [place]MO [place] | | | | | | + +--------+ +--------+ +---------+--------+ + +--------+ +--------+ + + | Guarantor Name | Accoun | Relation to | Date | Phone | Billing Address | | | t Type | Patient | of | | | | | | | | | | + +--------+ +--------+ + + | Pam Villegas D | Person | Self [birth year] | [address] | | | al/Fam | | 1980 | [phone] | [address] [place] [place] | | | frankie | | | [address] (Home) | [address] | + +--------+ +--------+ + + | Pam Villegas | Person | Self | [birth year] | | [address] | | | al/Fam | | 1980 | [phone] | [address] [place] | | | [place] | | | 5 (Home) | [address] | + +--------+ +--------+ + + Advance Directives + + + + + | Type | Date Recorded | Patient | Explanation | | | | Operations Superintendent | | + + + + + | Power of | | | | | Licensed [place] Real Estate Appraiser | | | | + + + + + | Advance | | | | | Directive | | | | + + + + +
--- OUTSIDE RECORDS SUMMARY | ~2020-04-06 | XMS | Encounter Summary ---
Demographics + + + | Address | [address] | | | [place] [address] | + + + | Home Phone | | + + + | Preferred Language | Unknown | + + + | Marital Status | Single | + + + | Rastafari Affiliation | Unknown | + + + | Race | Unknown | + + + | Ethnic Group | Unknown | + + + Author + + + | Author | [facility] | | | and [place] | + + + | Organization | [facility] | | | and [...] Team Providers + +------+ + | Care Manager Recruiting Name | Role | Phone | + +------+ + | Amrit Roblero | PCP | | + +------+ + Encounter Details +--------+ + + + + | Date | Type | Department | Care Team | Description | +--------+ + + + + | 01/10/ | Orders Only | [facility] | Conversion | | | 2019 | | CONVERSION DEP [address] | Transaction, | | | | | CAROLYN HEURTA | Provider Unknown | | | | | [place] | [phone] | | | | | [address] | | | | | | [phone] | | | +--------+ + + + [...] [place] | | | | | | [address] | | | | | | | | +--------+---------+ + + + documented as of this encounter Visit Diagnoses Not on filedocumented in this encounter"
--- OUTSIDE RECORDS SUMMARY | ~2020-04-06 | XMS | Encounter Summary ---
Demographics + + + | Address | [address] | | | [place] [address] | + + + | Home Phone | | + + + | Preferred Language | Unknown | + + + | Marital Status | Single | + + + | Scientology Affiliation | Unknown | + + + | Race | Unknown | + + + | Ethnic Group | Unknown | + + + Author + + + | Author | [facility] | | | and [place] | + + + | Organization | [facility] | | | [...] Team Providers + +------+ + | Care Splitter Hand Name | Role | Phone | + +------+ + PCP | Unavailable | + +------+ + Encounter Details +--------+ + + + + | Date | Type | Department | Care Team | Description | +--------+ + + + + | 12/15/ | Hospital | [facility] | | | | 1999 | Encounter | [facility] | | | | | | [facility] [address] | | | | | | [place], | | | | | | [place] [address] | | | | | | [phone] | | | +--------+ + + + [...] [place] | | | | | | [address] | | | | | | | | +--------+---------+ + + + documented as of this encounter Visit Diagnoses Not on filedocumented in this encounter"
--- OUTSIDE RECORDS SUMMARY | ~2020-04-06 | XMS | Encounter Summary ---
Demographics + + + | Address | [address] | | | [place] [address] | + + + | Home Phone | | + + + | Preferred Language | Unknown | + + + | Marital Status | Single | + + + | Orthodoxy Affiliation | Unknown | + + + [...] Team Providers + +------+ + | Care Extrusion Die Template Maker Name | Role | Phone | + +------+ + PCP | Unavailable | + +------+ + Encounter Details +--------+ + + + + | Date | Type | Department | Care Team | Description | +--------+ + + + + | 10/10/ | Hospital | [facility] | | | | 1998 | Encounter | [facility] | | | | | | [facility] [address] | | | | | | [place], | | | | | | [place] [address] | | | | | | [phone] | | | +--------+ + + + [...] [place] | | | | | | [address] | | | | | | | | +--------+---------+ + + + documented as of this encounter Visit Diagnoses Not on filedocumented in this encounter"
--- OUTSIDE RECORDS SUMMARY | ~2020-04-06 | XMS | Encounter Summary ---
Demographics + + + | Address | [address] | | | [place] [address] | + + + | Home Phone | | + + + | Preferred Language | Unknown | + + + | Marital Status | Single | + + + | Pentecostal Affiliation | Unknown | + + + | Race | Unknown | + + + | Ethnic Group | Unknown | + + + Author + + + | Author | [facility] | | | and [place] | + + + | Organization | [facility] | | [...] Team Providers + +------+ + | Care Surgery Scheduling Coordinator Name | Role | Phone | + +------+ + PCP | Unavailable | + +------+ + Encounter Details +--------+ + + + + | Date | Type | Department | Care Team | Description | +--------+ + + + + | 12/21/ | Hospital | [facility] | | | | 1999 | Encounter | [facility] | | | | | | [facility] [address] | | | | | | [place], | | | | | | [place] [address] | | | | | | [phone] | | | +--------+ + + + [...] [place] | | | | | | [address] | | | | | | | | +--------+---------+ + + + documented as of this encounter Visit Diagnoses Not on filedocumented in this encounter"
--- OUTSIDE RECORDS SUMMARY | ~2020-04-06 | XMS | Encounter Summary ---
Demographics + + + | Address | [address] | | | [place] [address] | + + + | Home Phone | | + + + | Preferred Language | Unknown | + + + | Marital Status | Single | + + + | Samaritan Affiliation | Unknown | + + + | Race | Unknown | + + + | Ethnic Group | Unknown | + + + Author + + + | Author | [facility] | | | and [place] | + + + | Organization | [facility] | | | and [...] Team Providers + +------+ + | Care Biomedical Specialist Name | Role | Phone | + [...] | | | | | | [place] [address] | | | | | | [phone] | | | +--------+ + + + [...] [place] | | | | | | [address] | | | | | | | | +--------+---------+ + + + documented as of this encounter Visit Diagnoses Not on filedocumented in this encounter"
--- OUTSIDE RECORDS SUMMARY | ~2020-04-06 | XMS | Encounter Summary ---
Demographics + + + | Address | [address] | | | [place] [address] | + + + | Home Phone | | + + + | Preferred Language | Unknown | + + + | Marital Status | Single | + + + | Mandaeism Affiliation | Unknown | + + + | Race | Unknown | + + + | Ethnic Group | Unknown | + + + Author + + + | Author | [facility] | | | and [place] | + + + | Organization | [facility] | | | and [...] Team Providers + +------+ + | Care Digital Photo Printer Name | Role | Phone | + [...] | | | | | Complete | [place], [place] | [address] | | | | | | [address] | Phone: | | | | | | Phone: | [phone] | | | | | | [phone] | Fax: | | | | | | Fax: | [phone] | | | | | | [phone] | | + +--------+ + + + [...] | Authorized | | | Diagnoses | Cammal, | Alsamara, | | | | | 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 | [place] | [place] [address] | | | | | valve | [address] | [place] | | | | | Endocarditis | [place], | [address] Phone: | | | | | valve | [place] [address] | [phone] | | | | | unspecified | Phone: | Fax: | | | | | Chest pain | [phone] | [phone] | | | | | unspecified | Fax: | | | | | | Stress | [phone] | | | | | | Test done- 3 | | | | | | | month Fu | | | | | | | Procedures | | | | | | | [place] OFFICE | | | | | | [...] + + | 02/05/ | Office | [facility] | Kiran Craft, | Bicuspid aortic | | 2019 | Visit | CARDIOLOGY [facility] | MD Francine HURD | valve (Primary Dx) | | | | [address] | [place], [place] | | | | | [address] | [address] | | | | | [place] | | | | | | [address] | | | | | | [phone] | | | +--------+---------+ + + + [...] | | | | | [place], [place] | | | | | | [id number] | | | | | | | [...]
--- OUTSIDE RECORDS SUMMARY | ~2020-04-06 | XMS | Encounter Summary ---
Demographics + + + | Address | [address] | | | [place] [address] | + + + | Home Phone | | + + + | Preferred Language | Unknown | + + + | Marital Status | Single | + + + | Taoism Affiliation | Unknown | + + + | Race | Unknown | + + + | Ethnic Group | Unknown | + + + Author + + + | Author | [facility] | | | and [place] | + + + | Organization | [facility] | | | [...] Team Providers + +------+ + | Care Household Appliance Mechanic Name | Role | Phone | + +------+ + PCP | Unavailable | + +------+ + Encounter Details +--------+ + + + + | Date | Type | Department | Care Team | Description | +--------+ + + + + | 04/16/ | Hospital | [facility] | | | | 2001 | Encounter | MED [facility] | | | | | | [address] | | | | | | [place] | | | | | | [address] | | | | | | [phone] | | | +--------+ + + + [...] [place] | | | | | | [address] | | | | | | | | +--------+---------+ + + + documented as of this encounter Visit Diagnoses Not on filedocumented in this encounter"
--- OUTSIDE RECORDS SUMMARY | ~2020-04-06 | XMS | Encounter Summary ---
Demographics + + + | Address | [address] | | | [place] [address] | + + + | Home Phone | | + + + | Preferred Language | Unknown | + + + | Marital Status | Single | + + + | Adventism Affiliation | Unknown | + + + | Race | Unknown | + + + | Ethnic Group | Unknown | + + + Author + + + | Author | [facility] | | | and [place] | + + + | Organization | [facility] | | [...] Team Providers + +------+ + | Care Plug Drill Operator Name | Role | Phone | + +------+ + PCP | Unavailable | + +------+ + Encounter Details +--------+ + + + + | Date | Type | Department | Care Team | Description | +--------+ + + + + | 12/21/ | Hospital | [facility] | | | | 1999 | Encounter | [facility] | | | | | | [facility] [address] | | | | | | [place], | | | | | | [place] [address] | | | | | | [phone] | | | +--------+ + + + [...] [place] | | | | | | [address] | | | | | | | | +--------+---------+ + + + documented as of this encounter Visit Diagnoses Not on filedocumented in this encounter"
--- OUTSIDE RECORDS SUMMARY | ~2020-04-06 | XMS | Encounter Summary ---
Demographics + + + | Address | [address] | | | [place] [address] | + + + | Home Phone | | + + + | Preferred Language | Unknown | + + + | Marital Status | Single | + + + | Christian Affiliation | Unknown | + + + | Race | Unknown | + + + | Ethnic Group | Unknown | + + + Author + + + | Author | [facility] | | | and [place] | + + + | Organization | [facility] | | | and [place] | + [...] Team Providers + +------+ + | Care Orthopedic Specialist Name | Role | Phone | [...] Transaction, | | | | | CAROLYN HUERTA | Provider Unknown | | | | | [place] | [phone] | | | | | [address] | | | | | | [phone] | | | +--------+ + + + [...] [place] | | | | | | [address] | | | | | | | | +--------+---------+ + + + documented as of this encounter Visit Diagnoses Not on filedocumented in this encounter"
--- OUTSIDE RECORDS SUMMARY | ~2020-04-06 | XMS | Encounter Summary ---
Demographics + + + | Address | [address] | | | [place] [address] | + + + | Home Phone | | + + + | Preferred Language | Unknown | + + + | Marital Status | Single | + + + | Congregation Affiliation | Unknown | + + + | Race | Unknown | + + + | Ethnic Group | Unknown | + + + Author + + + | Author | [facility] | | | and [place] | + + + | Organization | [facility] | | | [...] Team Providers + +------+ + | Care Mainspring Strip Inspector Name | Role | Phone | + +------+ + PCP | Unavailable | + +------+ + Encounter Details +--------+ + + + + | Date | Type | Department | Care Team | Description | +--------+ + + + + | 12/22/ | Hospital | [facility] | | | | 1999 - | Encounter | [facility] | | | | | | [facility] [address] | | | | 12/23/ | | [place], | | | | 1999 | | [place] [address] | | | | | | [phone] | | | +--------+ + + + [...] [place] | | | | | | [address] | | | | | | | | +--------+---------+ + + + documented as of this encounter Visit Diagnoses Not on filedocumented in this encounter"
--- OUTSIDE RECORDS SUMMARY | ~2020-04-06 | XMS | Clinical Summary ---
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 | + + Encounters +--------+ + + + + | Date | Type | Specialty | Care Team | Description | +--------+ + + + + | 02/20/ | Virtual | Gastroenterology | [facility], | Abdominal pain, | | 2019 [...] [place] | | | | | | [address] | | | | | | | [...] | [employer] | MODA | [id number] | 01/02/20 | [phone] | | Medica | | MEDICAID HMO | HEALTH | | 20-Pre | 1 | | id | | | MDCD | | sent | | | | | | [place]MO [place] | | | | | | + +--------+ +--------+ +---------+--------+ | [employer] | MODA | [id number] | | [phone] | | Medica | | MEDICAID HMO [...] [place] | | | [place] (Home) | [address] | + +--------+ +--------+ + + | Pam Villegas | Person | Self | [birth year] | | [address] | | | al/Fam | | 1980 | [phone] | [address] [place] | | | [place] | | | [address] (Home) | [address] | + +--------+ +--------+ + + Advance Directives + + + + + | Type | Date Recorded | Patient | Explanation | | | | Director Of Research | | + + + + + | Power of | | | | | Wheel Loader Operator | | | | + + + + + | Advance | | | | | Directive | | | | + + + + +
--- OUTSIDE RECORDS SUMMARY | ~2020-04-06 | XMS | Encounter Summary ---
Demographics + + + | Address | [address] | | | [place] [address] | + + + | Home Phone | | + + + | Preferred Language | Unknown | + + + | Marital Status | Single | + + + | Yarsanism Affiliation | Unknown | + + + | Race | Unknown | + + + | Ethnic Group | Unknown | + + + Author + + + | Author | [facility] | | | and [place] | + + + | Organization | [facility] | | [...] Team Providers + +------+ + | Care Polygraph Operator Name | Role | Phone | + +------+ + | Amrit Roblero | PCP | | + +------+ + Reason for Visit Evaluate & Treat (Routine) +--------+--------+ + + + + | Status | Reason | Specialty | Diagnoses / | Referred By | Referred To | | | | | Procedures | Contact | Contact | +--------+--------+ + + + + | Closed | | Gastroenterol | Diagnoses | Guevara | Kristina Dooley | | | | antonio | Fatty | David | Gastroenterol | | | | | (change of) | MD Erik | o[address] | | | | | liver, not | [address] | | | | | elsewhere | [place] | [address] [place] | | | | | classified | JUN [address] | [place], [place] | | | | | Right upper | [place], | [address] | | | | | quadrant | [place] [address] | Phone: | | | | | pain | Phone: | [phone] | | | | | Procedures | [phone] | Fax: | | | | | AGENT [facility]OK[facility] OFFICE | Fax: | [phone] | | | | | VISIT | [phone] | | +--------+--------+ + + + + Encounter Details +--------+ + + + + | Date | Type | Department | Care Team | Description | +--------+ + + + + | 02/20/ | Virtual | [facility] [place] | [facility] | Ab[facility], | | 2019 | Office | GASTROENTEROLOGY | [address] | right upper quadrant | | | Visit | [address] | [place], [address] | (Primary Dx) | | | | [address] [place], [place] | [place], [place] | | | | | [address] | [address] | | | | | [phone] | | | +--------+ + + + [...] + + documented as of this encounter Progress Notes Vickie Miller ARNP - 02/21/2020 11:00 AM PDTFormatting of this note might be differe nt from the original. This exam was initially conducted via a secure 256-bit AES encrypted bidirectional video se ssion. Service was provided [id number] with the patient via interactive videoconferencing Video start time 1100 Video end time 1120 Total time (in minutes) including non [id number] time (reviewing records, documentation, etc..) 20 minutes You have chosen to receive care through the use of telemedicine. Telemedicine enables [facility] care providers at different locations to provide safe, effective and convenient care throu gh the use of technology. As with any health care service, there are risks associated with t he use of telemedicine, including equipment failure, poor image resolution and information s ecurity issues. Do you understand the risks and benefits of telemedicine as I have explained them to you? " Yes" Have your questions regarding telemedicine been answered? "Yes" Patient is currently at Patient's location: home Do you consent to the use of telemedicine in your medical care today? Yes. Last question, I need to confirm where are you physically located right now? [place], [place] Answer: Patient confirms they are located in a state where Vickie Colon ARNP i s licensed. PATIENT NAME: Pam Villegas : 1980: AGE: 39 y.o. REFERRED BY: No additional provider found PRIMARY CARE: RJ Andrade Subjective: CHIEF COMPLAINT: Pam Villegas is a 39 y.o. female referred by RJ Andrade for evaluation and treatment of abdominal pain. HISTORY OF PRESENT ILLNESS: Patient states that she has pain on the right side of abdomen. It can feel heavy. She has n oted the discomfort starting about 8 months ago. She reports a pressure sensation. It has be en so intense that she has been unable to stand. She has not had the intense pain for t 2 month. At least every couple days she has the pressure. It can last a few minutes. Not a ssociated with eating or moving. If it is uncomfortable, she will sit down to help. Since her last appointment with RJ Andrade she has changed her diet. She is not eat ing out as much. She is counting carbs and is more aware of her portion. Stools are formed and a decent size. She has a BM every 1-2 days. She has had labs and RUQ abdominal ultrasound completed MEDICAL, SURGICAL, AND PERSONAL HISTORY: LMP 01/30/2020 Allergies Allergen Reactions Amoxicillin Hives Penicillins Rash Rash Past Medical History: Diagnosis Date Heart murmur History reviewed. No pertinent surgical history. Family History Problem Relation Age of Onset Hypertension Mother Social History Socioeconomic History Marital status: Single Spouse name: Not on file Number of children: Not on file Years of education: Not on file Highest education level: Not on file Occupational History Not on file Social Needs Financial resource strain: Not on file Food insecurity: Worry: Not on file Inability: Not on file Transportation needs: Medical: Not on file Non-medical: Not on file Tobacco Use Smoking status: Former Smoker Smokeless tobacco: Never Used Substance and Sexual Activity Alcohol use: Not Currently Drug use: Not Currently Sexual activity: Not on file Lifestyle Physical activity: Days per week: Not on file Minutes per session: Not on file Stress: Not on file Relationships Social connections: Talks on phone: Not on file Gets together: Not on file Attends lutheran service: Not on file Active member of club or organization: Not on file Attends meetings of clubs or organizations: Not on file Relationship status: Not on file Intimate partner violence: Fear of current or ex partner: Not on file Emotionally abused: Not on file Physically abused: Not on file Forced sexual activity: Not on file Other Topics Concern Not on file Social History Narrative Not on file Review of Systems Constitutional: Negative for diaphoresis, fatigue, fever and unexpected weight change. HENT: Negative for congestion, hearing loss, mouth sores, rhinorrhea and trouble swallowing . Eyes: Negative for redness and visual disturbance. Respiratory: Negative for cough, choking, chest tightness, shortness of breath and wheezing . Cardiovascular: Negative for chest pain, palpitations and leg swelling. Gastrointestinal: Positive for abdominal distention and abdominal pain. Negative for anal b leeding, blood in stool, constipation, diarrhea, nausea, rectal pain and vomiting. Endocrine: Denies enlarged thyroid Genitourinary: Negative for dysuria, flank pain and frequency. Musculoskeletal: Negative for arthralgias, back pain and joint swelling. Skin: Negative for color change and rash. Neurological: Negative for seizures, syncope, weakness, numbness and headaches. Hematological: Does not bruise/bleed easily. Denies anemia or enlarged lymph glands. Psychiatric/Behavioral: Negative for dysphoric mood. The patient is nervous/anxious. Objective: Physical Exam Nursing note reviewed. Constitutional: General: She is not in acute distress. Appearance: Normal appearance. She is not ill-appearing. HENT: Head: Normocephalic and atraumatic. Pulmonary: Effort: Pulmonary effort is normal. Neurological: General: No focal deficit present. Mental Status: She is alert. Psychiatric: Attention and Perception: Attention normal. Mood and Affect: Mood normal. Speech: Speech normal. Behavior: Behavior normal. Thought Content: Thought content normal. Office Visit on 02/06/2020 Component Date Value Ref Range Status VENTRICULAR RATE EKG 02/06/2020 82 BPM Final ATRIAL RATE 02/06/2020 82 BPM Final P-R INTERVAL 02/06/2020 142 ms Final QRS DURATION 02/06/2020 82 ms Final Q-T INTERVAL 02/06/2020 384 ms Final Q-T INTERVAL (CORRECTED) 02/06/2020 448 ms Final P WAVE AXIS 02/06/2020 40 degrees Final QRS AXIS 02/06/2020 7 degrees Final T AXIS 02/06/2020 50 degrees Final INTERPRETATION TEXT 02/06/2020 Final Value:Normal sinus rhythm Normal ECG No previous ECGs available Confirmed by Venancio DUBOIS [facility] ([id number]) on 02/09/2020 11:03:41 AM Assessment: 1. Abdominal pain, right upper quadrant Plan: She is to start psyllium once daily. Recommended she check-in in about 2 weeks to see how her symptoms are doing. She will call or send [employer] message. If she still has symptoms, will discuss possible endoscopy procedures once we are able to r esume routine procedures. Patient is to call with any question or concerns. Any fevers, chills, chest pain, SOB or o ther serious symptoms patient is to call the office or go to ER. Spent 20 minutes with over half of the time spent in discussion with the patient regarding diagnostics and possible treatment options for pain. CC: RJ Andrade This note was dictated using voice recognition software. Please contact me if there are an y questions regarding its content. documented in t his encounter Plan of Treatment +--------+---------+ + + + | Date | Type | Specialty | Care Team | Description | +--------+---------+ + + + | 09/03/ | Office | Cardiology | Kiran Ashby, | | | 2019 | Visit | | MD Francine HURD | | | | | | [place] | | | | | | [address] | | | | | | | | +--------+---------+ + + + documented as of this encounter Visit Diagnoses + + | Diagnosis | + + | Abdominal pain, right upper quadrant - Primary | + + documented in this encounter
--- OUTSIDE RECORDS SUMMARY | ~2020-04-06 | XMS | Encounter Summary ---
Demographics + + + | Address | [address] | | | [place] [address] | + + + | Home Phone | | + + + | Preferred Language | Unknown | + + + | Marital Status | Single | + + + | Adventism Affiliation | Unknown | + + + | Race | Unknown | + + + | Ethnic Group | Unknown | + + + Author + + + | Author | [facility] | | | and [place] | + + + | Organization | [facility] | | [...] Team Providers + +------+ + | Care Animal Groomer Name | Role | Phone | + [...] | | Right upper | [place], | [address] | | | | | quadrant | [place] [address] | Phone: | | | | | pain | Phone: | [phone] | | | | | Procedures | [phone] | Fax: | | | | | TAMPING MACHINE OPERATOR OFFICE | Fax: | [phone] | | | | | VISIT | [phone] | | +--------+--------+ + + + + Encounter Details +--------+ + + + + | Date | Type | Department | Care Team | Description | +--------+ + + + + | 02/20/ | Virtual | [facility] [place] | [facility] | Abdominal [facility], | | 2019 | Office | GASTROENTEROLOGY | [address] | right upper quadrant | | | Visit | [address] | [place], [address] [address] | (Primary Dx) | | | | [address] [place], [place] | [place], [place] | | | | | [address] | [address] | | | | | [phone] | | | +--------+ + + + [...] bidirectional video se ssion. Service was provided [id number] with the patient via interactive videoconferencing Video start time 1100 Video end time 1120 Total time (in minutes) including non [id number] time (reviewing records, documentation, etc..) 20 minutes You have chosen to receive care through the use of telemedicine. Telemedicine enables [facility] care providers at different locations [...] file Gets together: Not on file Attends yarsanism service: Not on file Active member of [...] previous ECGs available Confirmed by Venancio DUBOIS [facility] ([id number]) on 02/09/2020 11:03:41 AM Assessment: 1. Abdominal pain, right upper quadrant Plan: She is to start psyllium once daily. Recommended she check-in in about 2 weeks to see how her symptoms are doing. She will call or send [employer] message. If she still has symptoms, will [...] | | | | | [place] | | | | | | [address] | | | | | | | | +--------+---------+ + + + documented as of this encounter Visit Diagnoses + + | Diagnosis | + + | Abdominal pain, right upper quadrant - Primary | + + documented in this encounter
[~2020-04-06 13:08] MED LIST: PRENATAL TABLE1 EAC1 PO
[2020-04-06] MEDS ORDERED: HYDROXYZINE HCL25 MG PO (13:23)
[2020-04-06] MEDS ORDERED: OMEPRAZOLE20 MG PO (13:23)
== END 2020-04-06 14:32 | disposition home or self-care (01) ==
LOC: ED 13:08
DX: S29.012A Strain of muscle and tendon of back wall of thorax, initial encounter (principal); Z87.891 Personal history of nicotine dependence; Z88.0 Allergy status to penicillin; Z91.040 Latex allergy status; Z79.899 Other long term (current) drug therapy; X58.XXXA Exposure to other specified factors, initial encounter
CPT/HCPCS: 72070; 99283-25; A9270

== ENCOUNTER 2021-12-21 20:43 | Emergency (ER) | payer OTHER ==
[~2021-12-21] VITALS: Ht 160 cm; Wt 89.8 kg
[~2021-12-21 20:43] MED LIST changes: +HYDROXYZINE HCL25 MG PO; +OMEPRAZOLE20 MG PO
--- OUTSIDE RECORDS SUMMARY | 2021-12-21 20:50 | XMS ---
PreManage Notification: JENA MILLS [employer] Guest Coordinator Events No recent Security Events currently on file CRITERIA MET - ED - Positive COVID-19 Lab Result - [facility] PROVIDERS There are no care providers on record at this time. Rosaline has no Care Guidelines for this patient. Rob VISIT COUNT (12 MO.) 1 [facility] TOTAL 1 NOTE: Visits indicate total known visits. ED/C VISIT TRACKING (12 MO.) 12/21/2021 20:44 [facility] TYPE: Emergency COMPLAINT: - HEART PALPITATIONS INPATIENT VISIT TRACKING (12 MO.) No inpatient visits to display in this time frame [email or web address]
--- NOTE | 2021-12-22 13:48 | EKG ---
[facility] [address] [place] [address] Signed Normal sinus rhythm with sinus arrhythmia Normal ECG When compared with ECG of 12-JUN-2018 12:44, No significant change was found Confirmed by FRANCISCO LOBATO MD ([id number]) on 12/22/2021 1:48:32 PM Electronically Signed By: FRANCISCO LOBATO MD 12/22/21 1348 PATIENT NAME: JENA MILLS Electrocardiogram DATE OF : 84 PHYSICIAN: FRANCISCO LOBATO MD REPORT #: [id number] REPORT IS CONFIDENTIAL AND NOT TO BE RELEASED WITHOUT AUTHORIZATION
== END 2021-12-21 22:31 | disposition home or self-care (01) ==
LOC: ED 20:43
DX: F41.9 Anxiety disorder, unspecified (principal); Z87.891 Personal history of nicotine dependence; Z91.040 Latex allergy status; Z88.0 Allergy status to penicillin; Z79.899 Other long term (current) drug therapy
CPT/HCPCS: 36415; 80053; 83735; 84484; 85025; 93005; 93010; 96374; 99285-25; J2060

== ENCOUNTER 2022-06-05 14:36 | Emergency (ER) | payer OTHER ==
[~2022-06-05] VITALS: Ht 160 cm; Wt 80.1 kg
[2022-06-05] MEDS ORDERED: DULOXETINE HCL20 MG (15:37)
[2022-06-05] MEDS ORDERED: PREDNISONE20 MG PO (17:30)
== END 2022-06-05 18:12 | disposition home or self-care (01) ==
LOC: ED 14:36
DX: J02.0 Streptococcal pharyngitis (principal); Z20.822 Contact with and (suspected) exposure to COVID-19; Z87.891 Personal history of nicotine dependence; Z88.0 Allergy status to penicillin; Z91.040 Latex allergy status; Z79.899 Other long term (current) drug therapy
CPT/HCPCS: 87502; 87880; 96372; 99283; C9803; J1100; J1885; U0003

== ENCOUNTER 2024-09-19 10:09 | Emergency (ER) | payer OTHER ==
[~2024-09-19] VITALS: Ht 160 cm; Wt 75.6 kg
[~2024-09-19 10:09] MED LIST changes: +DULOXETINE HCL20 MG; +PREDNISONE20 MG PO
[2024-09-19 10:47] LABS: BASOPHILS 1.3 % (0-2); EOSINOPHILS 2.2 % (0-6); HEMOGLOBIN 12.7 g/dL (12.0-18.0); MCH 27.2 (27-36); MCHC 33.5 g/dl (30-36); MCV 81.2 fl (81-99); NEUTROPHILS 58.5 % (39-80); PLATELET COUNT 323 K/uL (140-440); RBC 4.68 M/ul (4.3-5.7); RDW 16.1 (10.5-15.0)
[2024-09-19 11:03] LABS: ALBUMIN 3.6 g/dL (3.4-5.0); ALBUMIN/GLOBULIN RATIO 0.97 (1.1-2.4); ANION GAP 10.9 (7-21); BILIRUBIN, TOTAL 0.2 ng/dL (0.2-1.0); BUN/CREATININE RATIO 11.62 (6.0-28.6); CALCIUM 8.8 mg/dL (8.5-10.1); CREATININE, SERUM 0.86 mg/dL (0.55-1.02); POTASSIUM 3.9 mmol/L (3.5-5.1); PROTEIN, TOTAL 7.3 g/dL (6.4-8.2)
[2024-09-19 12:12] VITALS: BP 137/96
== END 2024-09-19 12:05 | disposition home or self-care (01) ==
LOC: ED 10:09
PROVIDERS: Emergency Medicine
DX: N93.9 Abnormal uterine and vaginal bleeding, unspecified (principal); Z87.891 Personal history of nicotine dependence; Z88.0 Allergy status to penicillin; Z91.040 Latex allergy status
CPT/HCPCS: 36415; 76830; 76856; 80053; 84703; 85025; 99284-25